=== PATIENT | female | born 2000 | race Caucasian/White ===

== ENCOUNTER 2020-07-04 11:05 | Emergency (ER) | payer BC ==
[2020-07-04 12:18] LABS: Bacteria/HPF None Seen HPF (None Seen); Bilirubin Negative (Negative); Blood, Urine Negative (Negative); Clarity Clear (Clear); Glucose, Urine (Dipstick) Normal (Negative); Ketone, Urine Trace mg/dL (Negative); Leukocyte 250 Leu/uL (Negative); Nitrite Negative (Negative); Pregnancy Test - Urine (BHCG) Negative (Negative); Pregu Control Background? CLEAR/WHITE (CLR/WHITE); Pregu Control Bar Appear? YES (CONTROL BAR); Protein, Urine (Dipstick) Negative (Neg-Trace); RBC/HPF 0-3 HPF (0-3); Specific Gravity 1.008 (1.002-1.036); Specific Gravity, Urine 1.008 (1.002-1.036); Squamous Epithelial 0-3 HPF (0-3); Urobilinogen Normal mg/dL (Less than 2); pH, Urine 6.5 (5.0-9.0)
[2020-07-07 22:08] LABS: Chlamydia by PCR DETECTED (NotDetected); GC by PCR DETECTED (NotDetected)
== END 2020-07-04 13:07 | disposition home or self-care (01) ==
LOC: ERS 11:05
DX: N39.0 Urinary tract infection, site not specified (principal)
CPT/HCPCS: 81003; 81015; 81025; 87480; 87491; 87510; 87529; 87591; 87660; 99283

== ENCOUNTER → 2020-07-08 | Day surgery (SDC) | payer BC ==
[~2020-07-08] MED LIST: Lidocaine 1% PF 5 ML VIAL ONE; cefTRIAXone\\ROCEPHIN 1 GM VIAL ONE
== END ==
LOC: ER/OP 14:36
DX: Z23 Encounter for immunization (principal)
CPT/HCPCS: J0696